=== PATIENT | male | born 2000 ===

== ENCOUNTER 2023-11-20 13:20 | Emergency (ER) | payer OTHER ==
[2023-11-20] MEDS ORDERED: Lidocaine 2% 20 ML MDV INFILT ONE (13:21)
[2023-11-20] MEDS: Lidocaine/Epineph/Tetracaine 3 ML Syringe TOP ONE (14:42)
[2023-11-20] MEDS: Cephalexin 500 MG Cap PO ONE (16:07)
== END 2023-11-20 16:31 | disposition home or self-care (01) ==
LOC: FB.ED 13:20
DX: S61.212A Laceration without foreign body of right middle finger without damage to nail, initial encounter (principal); W20.8XXA Other cause of strike by thrown, projected or falling object, initial encounter
CPT/HCPCS: 12001; 73130; 99283; A9270